=== PATIENT | female | born 1970 | race Two or more races ===

== ENCOUNTER → 2017-02-18 | Outpatient (CLI) | payer BC ==
[2017-02-18 13:20] LABS: Basophils # (auto) 0.1 uL; Basophils % (auto) 0.8 % (0.0-2.0); Eosinophils # (auto) 0.1 uL; Hematocrit 43.1 % (36.0-46.0); Hemoglobin 14.3 g/dL (12.2-16.2); Lymphocytes # (auto) 1.8 uL; Lymphocytes % (auto) 26.5 % (10.0-50.0); Mean Corpuscular Hgb Conc. 33.1 g/dL (32.0-36.0); Mean Corpuscular Volume 93.6 fL (80.0-100.0); Mean Platelet Volume 9.1 fL (6.9-10.8); Monocytes # (auto) 0.7 uL; Monocytes % (auto) 9.4 % (0.0-12.0); Neutrophils # (auto) 4.3 uL; Neutrophils % (auto) 61.3 % (37.0-80.0); Nucleated Red Blood Cells % 0.5 %; Platelet Count (auto) 321 10^3/uL (140-450); Red Cell Distribution Width 13.6 % (11.8-14.3); White Blood Cell 6.9 10^3/uL (4.4-10.8)
[2017-02-18 13:36] LABS: Albumin 3.9 g/dL (3.4-5.0); BUN/Creatinine Ratio 16.2; Bilirubin, Total 0.3 mg/dL (0.2-1.0); Calcium 9.2 mg/dL (8.5-10.1); Potassium 3.8 mmol/L (3.5-5.1); Total Protein 8.8 g/dL (6.4-8.2)
[2017-02-18 13:45] LABS: Urine Bilirubin Negative (Negative); Urine Blood Negative /uL (Negative); Urine Color Yellow (Yellow); Urine Glucose Normal (Normal); Urine Ketone Negative (Negative); Urine Nitrite Negative (Negative); Urine RBC 1 /hpf (0 - 4); Urine Squamous Epithelial Cell FEW /hpf (<5); Urine Urobilinogen Normal (Negative)
[2017-02-19 09:07] LABS: EBV Ab VCA IgG Antibody >600.0 U/mL (0.0-17.9); EBV Early Antigen IgG Antibody 32.5 U/mL (0.0-8.9)
== END | disposition home or self-care (01) ==
LOC: LAB 09:22
PROVIDERS: ATTEND Internal Medicine Cardiovascular Disease
DX: D64.9 Anemia, unspecified (principal); I10 Essential (primary) hypertension; E03.9 Hypothyroidism, unspecified; D51.9 Vitamin B12 deficiency anemia, unspecified; B00.9 Herpesviral infection, unspecified; R70.0 Elevated erythrocyte sedimentation rate; N39.0 Urinary tract infection, site not specified; R79.82 Elevated C-reactive protein (CRP)
CPT/HCPCS: 36415; 80053; 81001; 82607; 84443; 85025; 85652; 86141; 86664; 87086; 87088; 87497

== ENCOUNTER → 2017-03-23 | Outpatient (CLI) | payer BC | END | disposition home or self-care (01) | LOC: LAB 09:28 | PROVIDERS: ATTEND Internal Medicine Cardiovascular Disease | DX: K75.9 Inflammatory liver disease, unspecified (principal) | CPT/HCPCS: 36415; 86704; 86706; 86708; 86803; 87340 ==

== ENCOUNTER → 2017-03-26 | Outpatient (CLI) | payer BC | END | disposition home or self-care (01) | LOC: Rad HDHVI 10:39 | PROVIDERS: ATTEND Internal Medicine Cardiovascular Disease | DX: M48.061 Spinal stenosis, lumbar region without neurogenic claudication (principal); M47.896 Other spondylosis, lumbar region | CPT/HCPCS: 72131 ==

== ENCOUNTER → 2017-04-05 | Outpatient (CLI) | payer BC ==
[2017-04-05 12:47] LABS: Hepatitis B Surface Antibody Negative
[2017-04-05 12:57] LABS: Hepatitis B Surface Antigen Negative (Negative)
[2017-04-05 13:25] LABS: Hepatitis A Total Antibody Negative; Hepatitis C Antibody Negative (Negative)
[2017-04-05 13:26] LABS: Hepatitis B Core Total AB Negative
== END | disposition home or self-care (01) ==
LOC: LAB 08:56
PROVIDERS: ATTEND Internal Medicine Cardiovascular Disease
DX: K75.9 Inflammatory liver disease, unspecified (principal)
CPT/HCPCS: 36415; 86704; 86706; 86708; 86803; 87340

== ENCOUNTER → 2017-04-30 | Outpatient (CLI) | payer BC ==
[2017-04-30 13:21] LABS: Cholesterol 169 mg/dL (< 200); HDL Cholesterol 55 mg/dL (40-59); LDL Cholesterol 102 mg/dL (< 100); Triglycerides 130 mg/dL (< 150)
== END | disposition home or self-care (01) ==
LOC: LAB 08:32
PROVIDERS: ATTEND Internal Medicine Cardiovascular Disease
DX: E78.00 Pure hypercholesterolemia, unspecified (principal)
CPT/HCPCS: 36415; 80061

== ENCOUNTER → 2018-09-12 | Outpatient (CLI) | payer BC ==
[2018-09-12 12:38] LABS: Basophils # (auto) 0.1 uL; Basophils % (auto) 0.9 % (0.0-2.0); Eosinophils # (auto) 0.2 uL; Eosinophils % (auto) 2.1 % (0.0-7.0); Hematocrit 41.9 % (36.0-46.0); Hemoglobin 13.9 g/dL (12.2-16.2); Lymphocytes # (auto) 1.9 uL; Lymphocytes % (auto) 20.2 % (10.0-50.0); Mean Corpuscular Hemoglobin 30.4 pg (28.0-32.0); Mean Corpuscular Hgb Conc. 33.1 g/dL (32.0-36.0); Mean Corpuscular Volume 91.8 fL (80.0-100.0); Monocytes # (auto) 0.6 uL; Monocytes % (auto) 6.6 % (0.0-12.0); Neutrophils # (auto) 6.7 uL; Neutrophils % (auto) 70.2 % (37.0-80.0); Nucleated Red Blood Cells % 0.2 %; Platelet Count (auto) 227 10^3/uL (140-450); Red Blood Cells 4.57 10^6/uL (4.0-5.20); Red Cell Distribution Width 13.1 % (11.8-14.3); White Blood Cell 9.6 10^3/uL (4.4-10.8)
[2018-09-12 12:44] LABS: Urine Blood Negative /uL (Negative)
[2018-09-12 13:07] LABS: Chloride 103 mmol/L (98-107); Potassium 3.8 mmol/L (3.5-5.1); Sodium 137 mmol/L (136-145)
[2018-09-12 13:16] LABS: Alanine Aminotransferase 31 U/L (13-56); Albumin 3.7 g/dL (3.4-5.0); Alkaline Phosphatase 63 U/L (45-117); Anion Gap 10 (5-15); Aspartate Aminotransferase 20 U/L (15-37); BUN/Creatinine Ratio 14.1; Bilirubin, Total 0.2 mg/dL (0.2-1.0); Blood Urea Nitrogen 10 mg/dL (7-18); Calcium 9.7 mg/dL (8.5-10.1); Carbon Dioxide 24 mmol/L (21-32); Cholesterol 174 mg/dL (< 200); GFR African American 113 mL/min; GFR Non-African American 93 mL/min; Glucose 180 mg/dL (74-106); HDL Cholesterol 27 mg/dL (40-59); Total Protein 8.1 g/dL (6.4-8.2); Triglycerides 569 mg/dL (< 150)
[2018-09-12 13:19] LABS: Free T4 (Free Thyroxine) 0.92 ng/dL (0.89-1.76)
== END | disposition home or self-care (01) ==
LOC: LAB 08:10
PROVIDERS: ATTEND Internal Medicine Cardiovascular Disease
DX: Z00.00 Encounter for general adult medical examination without abnormal findings (principal); E03.9 Hypothyroidism, unspecified; E55.9 Vitamin D deficiency, unspecified; N39.0 Urinary tract infection, site not specified; D51.9 Vitamin B12 deficiency anemia, unspecified; M32.10 Systemic lupus erythematosus, organ or system involvement unspecified; Z79.899 Other long term (current) drug therapy
CPT/HCPCS: 36415; 80053; 80061; 81003; 82306; 82607; 83036; 84439; 84443; 85025; 86225; 86235